=== PATIENT | male | born 1945 | race Caucasian/White ===

== ENCOUNTER 2019-02-13 13:58 | Emergency (ER) | payer MEDICARE, BC ==
[~2019-02-13] VITALS: Ht 182.9 cm; Wt 81.4 kg
[2019-02-13 14:10] VITALS: BP 147/94
== END 2019-02-13 14:58 | disposition home or self-care (01) ==
LOC: ED 14:52
DX: K40.90 Unilateral inguinal hernia, without obstruction or gangrene, not specified as recurrent (principal); I48.91 Unspecified atrial fibrillation
CPT/HCPCS: 99281